=== PATIENT | male | born 1995 | race Caucasian/White ===

== ENCOUNTER 2022-05-14 14:18 | Emergency (ER) | payer MEDICAID ==
[~2022-05-14] VITALS: Ht 185.4 cm; Wt 70.5 kg
[~2022-05-14 14:18] MED LIST: ALBU6.7H9 INH; GUAI1TBM19 PO
[2022-05-14] MEDS ORDERED: LORazepam 2 mg/ml vial IV ONE (14:30)
[2022-05-14] MEDS ORDERED: haloperidol lactate 5mg/ml inj IM ONE (14:30)
[2022-05-14] MEDS ORDERED: normal saline 1000ML IV soln IVB ONE (14:30)
[2022-05-14 14:49] LABS: BASOPHILS % (AUTO) 0.3 % (0-1); EOSINOPHILS # (AUTO) 0.2 X10'3 (0-0.9); EOSINOPHILS % (AUTO) 2.3 % (0-6); HEMATOCRIT 42.8 % (42.0-52.0); HEMOGLOBIN 14.7 g/dl (14.0-17.9); LYMPHOCYTES # (AUTO) 2.5 X10'3 (1.1-4.8); LYMPHOCYTES % (AUTO) 36.3 % (21-51); MEAN CORPUSCULAR HEMOGLOBIN 33.9 PG (27.0-31.0); MEAN CORPUSCULAR HGB CONC 34.2 g/dL (33.0-36.5); MEAN CORPUSCULAR VOLUME 99.1 FL (78-98); MEAN PLATELET VOLUME 7.7 FL (7.4-10.4); MONOCYTES # (AUTO) 0.6 X10'3 (0-0.9); MONOCYTES % (AUTO) 8.3 % (2-12); NEUTROPHILS # (AUTO) 3.7 X10'3 (1.8-7.7); NEUTROPHILS % (AUTO) 52.8 % (42-75); PLATELET COUNT 304 X10'3 (140-440); RED BLOOD COUNT 4.32 X10'6 (4.70-6.10); WHITE BLOOD COUNT 6.9 X10'3 (4.5-11.0)
[2022-05-14 15:03] LABS: ALANINE AMINOTRANSFERASE 12 U/L (12-78); ALBUMIN 4.1 G/DL (3.4-5.0); ALBUMIN/GLOBULIN RATIO 1.3 (1.1-1.5); ALKALINE PHOSPHATASE 68 IU/L (46-116); ANION GAP 11 (8-16); ASPARTATE AMINO TRANSFERASE 13 U/L (10-37); BILIRUBIN,TOTAL 0.6 MG/DL (0.1-1.0); BLOOD UREA NITROGEN 11 MG/DL (7-18); BUN/CREATININE RATIO 8.1 (5.4-32.0); CALCIUM 9.1 MG/DL (8.5-10.1); CHLORIDE 105 MMOL/L (99-107); CREATININE 1.36 MG/DL (0.60-1.10); GLUCOSE 121 MG/DL (70-104); POTASSIUM 3.1 MMOL/L (3.5-5.1); SODIUM 141 MMOL/L (135-145); TOTAL CARBON DIOXIDE 25.1 MMOL/L (24-32); TOTAL PROTEIN 7.2 G/DL (6.4-8.2); eGFR 63 ML/MIN
[2022-05-14] MEDS ORDERED: potassium Cl 20 mEq SR tablet PO STA (15:37)
[2022-05-14] MEDS ORDERED: potassium Cl 10 mEq/100mL bag IV ONE (15:40)
[2022-05-14] MEDS ORDERED: ondansetron/PF 4mg/2ml inj IV ONE (16:00)
[2022-05-14] MEDS ORDERED: magnesium 4gm in 100ml NS 100 ML IV ONE (16:00)
[2022-05-14 18:35] VITALS: BP 104/72
== END 2022-05-14 19:17 | disposition home or self-care (01) ==
LOC: ER 14:18
DX: R11.2 Nausea with vomiting, unspecified (principal); F12.90 Cannabis use, unspecified, uncomplicated; R11.15 Cyclical vomiting syndrome unrelated to migraine; Z79.899 Other long term (current) drug therapy
CPT/HCPCS: 36415; 80053; 85025; 93005; 96361; 96365; 96372; 96375; 99285; J1630; J2060; J2405; J3475; J3480; J7030

== ENCOUNTER 2024-03-05 20:26 | Emergency (ER) | payer MEDICAID ==
[~2024-03-05] VITALS: Ht 188 cm; Wt 68.2 kg
[~2024-03-05 20:26] MED LIST changes: +ALBU6.7H14 INH; -ALBU6.7H9 INH
[2024-03-05 20:28] VITALS: BP 115/68; PULSE 66; RESP 16; TEMP 97.9; O2SAT 98
[2024-03-05 21:28] LABS: BASOPHILS # (AUTO) 0.2 X10'3 (0-0.2); BASOPHILS % (AUTO) 1.2 % (0-1); EOSINOPHILS % (AUTO) 0.1 % (0-6); HEMATOCRIT 50.7 % (42.0-52.0); HEMOGLOBIN 17.2 g/dl (14.0-17.9); LYMPHOCYTES % (AUTO) 5.6 % (21-51); MEAN CORPUSCULAR HEMOGLOBIN 33.1 PG (27.0-31.0); MEAN CORPUSCULAR VOLUME 97.5 FL (78-98); MEAN PLATELET VOLUME 8.1 FL (7.4-10.4); MONOCYTES # (AUTO) 0.8 X10'3 (0-0.9); MONOCYTES % (AUTO) 4.3 % (2-12); NEUTROPHILS # (AUTO) 15.7 X10'3 (1.8-7.7); NEUTROPHILS % (AUTO) 88.8 % (42-75); PLATELET COUNT 311 X10'3 (140-440); RED CELL DISTRIBUTION WIDTH 14.4 % (11.5-14.5); WHITE BLOOD COUNT 17.7 X10'3 (4.5-11.0)
[2024-03-05 21:32] LABS: ALANINE AMINOTRANSFERASE 22 U/L (12-78); ALBUMIN 4.8 G/DL (3.4-5.0); ALBUMIN/GLOBULIN RATIO 1.3 (1.1-1.5); ALKALINE PHOSPHATASE 95 IU/L (46-116); ANION GAP 15 (8-16); ASPARTATE AMINO TRANSFERASE 18 U/L (10-37); BLOOD UREA NITROGEN 24 MG/DL (7-18); BUN/CREATININE RATIO 17.6 (10.0-20.0); CHLORIDE 100 MMOL/L (99-107); CREATININE 1.36 MG/DL (0.60-1.10); GLUCOSE 124 MG/DL (70-104); LIPASE 15 U/L (16-77); POTASSIUM 3.6 MMOL/L (3.5-5.1); SODIUM 142 MMOL/L (135-145); TOTAL CARBON DIOXIDE 26.6 MMOL/L (24-32); TOTAL PROTEIN 8.5 G/DL (6.4-8.2); eCRCL 79 ML/MIN; eGFR 63 ML/MIN
[2024-03-05 22:00] LABS: TOTAL CELLS COUNTED 100
[2024-03-05 22:01] LABS: PLATELET ESTIMATE NORMAL
[2024-03-05 22:09] LABS: PRO BRAIN NATRIURETIC PEPTIDE 58 PG/ML (0-125)
== END 2024-03-06 04:06 | disposition left against medical advice (07) ==
LOC: ER 20:27
DX: K92.0 Hematemesis (principal); Z53.21 Procedure and treatment not carried out due to patient leaving prior to being seen by health care provider
CPT/HCPCS: 36415; 71045; 80053; 83690; 83880; 84484; 85007; 85025; 93005; 99281

== ENCOUNTER 2024-05-18 11:26 | Emergency (ER) | payer MEDICAID ==
[~2024-05-18] VITALS: Ht 170.2 cm; Wt 67.0 kg
[2024-05-18 11:29] VITALS: BP 128/79; PULSE 88; RESP 18; TEMP 98.7; O2SAT 99
[2024-05-18] MEDS ORDERED: ONDA8TAB13 PO (12:14)
[2024-05-18] MEDS: ondansetron 4mg rapidly disintigrating tab PO ONE (12:28)
== END 2024-05-18 12:29 | disposition home or self-care (01) ==
LOC: ER 11:26
DX: R11.2 Nausea with vomiting, unspecified (principal); F10.10 Alcohol abuse, uncomplicated; F12.90 Cannabis use, unspecified, uncomplicated; Z79.899 Other long term (current) drug therapy
CPT/HCPCS: 99283